=== PATIENT | male | born 1940 | race Caucasian/White ===

== ENCOUNTER → 2017-04-12 | Outpatient (CLI) | payer OTHER ==
[~2017-04-12] MED LIST: ALBU0.63 NEB; ALLO100T30 PO; ASPI-496 PO; BECL8.7A5 INH; CARB1TAB44 PO; CARV3.122 PO; CYCL5TAB PO; DOXY100C15 PO; ERGO2000 PO; FLUT1DIS3 INH; FURO80TA3 PO; GABA600T2 PO; IPRA0.2S35 INH; LISI5TAB7 PO; METF500T4 PO; MONT10TA9 PO; MULT-717 PO; POTA20TA6 PO; PRED10TA PO; PROP10DR4 EACHEYE; RANI150C PO; SIMV20TA3 PO; TAMS0.4C2 PO; WARF2.5T73 PO; [UNRECOGNIZED DRUG - OTHER] PO; calcium 600mg PO
== END | disposition home or self-care (01) ==
LOC: CVU 13:08
PROVIDERS: ATTEND Surgery Vascular Surgery
DX: I83.93 Asymptomatic varicose veins of bilateral lower extremities (principal)
CPT/HCPCS: 93970

== ENCOUNTER → 2017-12-28 | Outpatient (CLI) | payer OTHER ==
[~2017-12-28] MED LIST changes: -BECL8.7A5 INH; +BECL8.7A7 INH
== END | disposition home or self-care (01) ==
LOC: CFH 07:30
PROVIDERS: ATTEND Internal Medicine
DX: R91.8 Other nonspecific abnormal finding of lung field (principal); K76.89 Other specified diseases of liver; I70.0 Atherosclerosis of aorta
CPT/HCPCS: 71250

== ENCOUNTER 2018-04-12 10:12 | Day surgery (SDC) | payer OTHER ==
[~2018-04-12] VITALS: Ht 182.9 cm; Wt 126.8 kg
[~2018-04-12 10:12] MED LIST changes: -METF500T4 PO; +METF500T5 PO
[2018-04-12] MEDS ORDERED: SODIUM CHLORIDE 0.9% 1,000 ML IV ONE (10:48)
[2018-04-12 10:49] VITALS: BP 125/50
[2018-04-12] MEDS ORDERED: BUDE10.2 INH (11:10)
[2018-04-12] MEDS ORDERED: WARF7.5T46 PO ×2 (11:10)
[2018-04-12] MEDS ORDERED: CARV3.1212 PO (11:10)
[2018-04-12 11:30] LABS: BASOPHILS # (AUTO) 0.02 x10^3/uL (0-0.1); BASOPHILS % (AUTO) 0 % (0-1); EOSINOPHILS # (AUTO) 0.25 x10^3/uL (0-0.4); EOSINOPHILS % (AUTO) 4 % (1-7); LYMPHOCYTES # (AUTO) 1.15 x10^3/uL (1-3.4); LYMPHOCYTES % (AUTO) 17 % (22-44); MD NO; MEAN CORPUSCULAR HEMOGLOBIN 31.9 pg (27.5-34.5); MEAN CORPUSCULAR HGB CONC 33.5 g/dL (33.2-36.2); MEAN CORPUSCULAR VOLUME 95.2 fL (81-97); MEAN PLATELET VOLUME 6.9 fL (7.4-10.4); MONOCYTES % (AUTO) 11 % (2-9); NEUTROPHILS # (AUTO) 4.48 x10^3/uL (1.8-6.8); NEUTROPHILS % (AUTO) 68 % (42-75); PLATELET COUNT 166 x10^3/uL (130-400); RED BLOOD COUNT 4.26 x10^6/uL (4.38-5.82); RED CELL DISTRIBUTION WIDTH 16.1 % (9.4-14.8)
[2018-04-12 11:39] LABS: ANION GAP 5 mmol/L (5-15); CALCIUM 8.5 mg/dL (8.5-10.1); CHLORIDE 110 mmol/L (98-107); CREATININE 0.95 mg/dL (0.7-1.3)
[2018-04-12] MEDS ORDERED: MIDAZOLAM 1 MG/ML, 5ML ONE (11:52)
[2018-04-12] MEDS ORDERED: TICAGRELOR 90 MG TABLET ONE (11:52)
[2018-04-12] MEDS ORDERED: HEPARIN 1,000 UNITS/ML, 10ML ONE (11:52)
[2018-04-12] MEDS ORDERED: FENTANYL PF 100 MCG/2ML ONE (11:52)
[2018-04-12] MEDS ORDERED: BIVALIRUDIN 250 MG ONE (11:52)
[2018-04-12] MEDS ORDERED: VERAPAMIL 2.5 MG/ML, 2ML ONE (11:52)
[2018-04-12] MEDS ORDERED: LIDOCAINE-MPF 2% ,5ML ONE (11:53)
[2018-04-12] MEDS ORDERED: SODIUM CHLORIDE 0.9% 1,000 ML IV SCH (13:17)
== END 2018-04-12 15:59 | disposition home or self-care (01) ==
LOC: CACL 10:12
PROVIDERS: ATTEND Internal Medicine Cardiovascular Disease
DX: I25.10 Atherosclerotic heart disease of native coronary artery without angina pectoris (principal); F17.210 Nicotine dependence, cigarettes, uncomplicated; J44.9 Chronic obstructive pulmonary disease, unspecified; E11.9 Type 2 diabetes mellitus without complications; M10.9 Gout, unspecified; I25.2 Old myocardial infarction; K58.9 Irritable bowel syndrome, unspecified; E66.9 Obesity, unspecified; E78.2 Mixed hyperlipidemia; Z79.82 Long term (current) use of aspirin; Z86.718 Personal history of other venous thrombosis and embolism; Z79.899 Other long term (current) drug therapy
CPT/HCPCS: 36415; 80048; 85025; 93454; 93571; 99156; 99157; C1769; C1887; C1894; J1644; J2250; J3010; J3490; Q9967; J0583

== ENCOUNTER → 2018-04-26 | Outpatient (CLI) | payer OTHER ==
[~2018-04-26] MED LIST changes: +BUDE10.2 INH; +CARV3.1212 PO; +OMNIPAQUE 350 MG/ML, 150 ML BOTTLE ONE; +WARF7.5T46 PO
== END | disposition home or self-care (01) ==
LOC: CVU 08:05
PROVIDERS: ATTEND Internal Medicine Cardiovascular Disease
DX: J43.9 Emphysema, unspecified (principal); I25.10 Atherosclerotic heart disease of native coronary artery without angina pectoris; I51.7 Cardiomegaly; J98.4 Other disorders of lung; I65.23 Occlusion and stenosis of bilateral carotid arteries; I10 Essential (primary) hypertension; I35.0 Nonrheumatic aortic (valve) stenosis; E11.9 Type 2 diabetes mellitus without complications; Z87.891 Personal history of nicotine dependence; Z86.718 Personal history of other venous thrombosis and embolism
CPT/HCPCS: 71275; 74174; 93880; 94060; 94726; 94729; Q9967

== ENCOUNTER 2018-05-08 07:15 | Inpatient (IN) | payer OTHER ==
[~2018-05-08] VITALS: Ht 185.4 cm; Wt 131.7 kg
[~2018-05-08 07:15] MED LIST changes: -OMNIPAQUE 350 MG/ML, 150 ML BOTTLE ONE
[2018-05-08] MEDS ORDERED: SODIUM CHLORIDE 0.9% 1,000 ML IV ONE (07:34)
[2018-05-08 07:53] VITALS: BP 141/73
[2018-05-08] MEDS ORDERED: CHLORHEXIDINE 15 ML BOTTLE MM PRN (08:00)
[2018-05-08] MEDS ORDERED: PLEASE ENTER HEIGHT AND WEIGHT MC SCH (08:00)
[2018-05-08] MEDS ORDERED: ONDANSETRON 2MG/ML, 2ML IVPush PRN (08:00)
[2018-05-08 08:22] LABS: BASOPHILS # (AUTO) 0.06 x10^3/uL (0-0.1); BASOPHILS % (AUTO) 1 % (0-1); EOSINOPHILS # (AUTO) 0.32 x10^3/uL (0-0.4); EOSINOPHILS % (AUTO) 5 % (1-7); LYMPHOCYTES # (AUTO) 1.01 x10^3/uL (1-3.4); LYMPHOCYTES % (AUTO) 15 % (22-44); MD NO; MEAN CORPUSCULAR HEMOGLOBIN 32.3 pg (27.5-34.5); MEAN CORPUSCULAR HGB CONC 34.3 g/dL (33.2-36.2); MEAN CORPUSCULAR VOLUME 94.3 fL (81-97); MEAN PLATELET VOLUME 6.6 fL (7.4-10.4); MONOCYTES # (AUTO) 0.71 x10^3/uL (0.2-0.8); MONOCYTES % (AUTO) 11 % (2-9); NEUTROPHILS # (AUTO) 4.61 x10^3/uL (1.8-6.8); NEUTROPHILS % (AUTO) 69 % (42-75); PLATELET COUNT 139 x10^3/uL (130-400); RED BLOOD COUNT 4.18 x10^6/uL (4.38-5.82)
[2018-05-08 08:31] LABS: ALBUMIN 3.7 g/dL (3.4-5.0); ANION GAP 7 mmol/L (5-15); CALCIUM 8.7 mg/dL (8.5-10.1); CHLORIDE 107 mmol/L (98-107)
[2018-05-08 08:36] LABS: ALANINE AMINOTRANSFERASE 11 U/L (12-78); ALKALINE PHOSPHATASE 66 U/L (45-117); BILIRUBIN,TOTAL 1.1 mg/dL (0.2-1.0); CREATININE 1.01 mg/dL (0.7-1.3); TOTAL PROTEIN 7.4 g/dL (6.4-8.2)
[2018-05-08] MEDS ORDERED: PROTAMINE SULFATE 10 MG/ML, 5ML ONE (08:55)
[2018-05-08] MEDS ORDERED: HEPARIN 1,000 UNITS/ML, 10ML ONE (08:55)
[2018-05-08] MEDS ORDERED: FENTANYL PF 250 MCG/5ML ONE (09:03)
[2018-05-08] MEDS ORDERED: PROPOFOL 10 MG/ML, 20ML ONE (09:05)
[2018-05-08] MEDS ORDERED: ROCURONIUM 10MG/ML,5ML ONE (09:05)
[2018-05-08] MEDS ORDERED: ONDANSETRON 2MG/ML, 2ML ONE (09:08)
[2018-05-08] MEDS ORDERED: PHENYLEPHRINE 10 MG/ML ONE (09:08)
[2018-05-08] MEDS ORDERED: CEFAZOLIN 1,000 MG ONE (09:08)
[2018-05-08] MEDS ORDERED: SUCCINYLCHOLINE 20 MG/ML, 10ML ONE (09:08)
[2018-05-08] MEDS ORDERED: DEXAMETHASONE 4 MG/ML, 1ML ONE (09:08)
[2018-05-08] MEDS ORDERED: GLYCOPYRROLATE 0.2MG/1ML, 5ML ONE (09:08)
[2018-05-08 09:32] LABS: INTERNATIONAL NORMALIZED RATIO 1.36 (0.93-1.1); PROTHROMBIN TIME 14.1 Seconds (9.6-11.5)
[2018-05-08] MEDS: SODIUM CHLORIDE 0.9% 1,000 ML IV SCH ×2 (10:16→20:16)
[2018-05-08] MEDS ORDERED: ACETAMINOPHEN 325 MG TABLET PO PRN (10:30)
[2018-05-08] MEDS ORDERED: LABETALOL 5MG/ML, 20ML IVPush PRN (10:30)
[2018-05-08] MEDS ORDERED: hydrALAzine 20 MG/ML, 1ML IVPush PRN (10:30)
[2018-05-08] MEDS ORDERED: CARBIDOPA/LEVODOPA 25 MG/100 MG TABLET PO SCH ×2 (14:00→21:00)
[2018-05-08] MEDS ORDERED: ZOLPIDEM 10MG TABLET PO PRN (17:30)
[2018-05-08] MEDS ORDERED: WARFARIN 5 MG TABLET PO-COUM SCH (18:00)
[2018-05-08] MEDS: GABAPENTIN 300 MG CAPSULE PO SCH ×2 (18:05→22:30)
[2018-05-08] MEDS: POTASSIUM CHLORIDE 20 MEQ PACKET PO SCH (18:05)
[2018-05-08 18:44] VITALS: BP 122/50
[2018-05-08] MEDS: CARBIDOPA/LEVODOPA CR 50 MG/200 MG TABLET PO SCH ×2 (19:44→22:40)
[2018-05-08 20:44] VITALS: BP 127/69
[2018-05-08] MEDS: ALLOPURINOL 100 MG TABLET PO SCH (20:57)
[2018-05-08] MEDS: CYCLOBENZAPRINE 10 MG TABLET PO SCH (20:57)
[2018-05-08] MEDS ORDERED: CARBIDOPA/LEVODOPA CR 50 MG/200 MG TABLET PO SCH (21:00)
[2018-05-08] MEDS: INSULIN LISPRO 100 UNITS/ML, PEN SQ-INSULIN SCH (21:00)
[2018-05-08] MEDS ORDERED: POLYETHYLENE GLYCOL 17 GM PACKET ONE (22:39)
[2018-05-08] MEDS ORDERED: DOCUSATE 100 MG CAPSULE ONE (22:39)
[2018-05-08] MEDS: DOCUSATE 100 MG CAPSULE PO SCH (22:44)
[2018-05-08] MEDS ORDERED: POLYETHYLENE GLYCOL 17 GM PACKET PO PRN (23:00)
[2018-05-09 01:42] VITALS: BP 119/62
[2018-05-09 05:17] LABS: BASOPHILS # (AUTO) 0.02 x10^3/uL (0-0.1); BASOPHILS % (AUTO) 0 % (0-1); EOSINOPHILS # (AUTO) 0.01 x10^3/uL (0-0.4); EOSINOPHILS % (AUTO) 0 % (1-7); LYMPHOCYTES # (AUTO) 0.77 x10^3/uL (1-3.4); LYMPHOCYTES % (AUTO) 7 % (22-44); MD NO; MEAN CORPUSCULAR HEMOGLOBIN 32.6 pg (27.5-34.5); MEAN PLATELET VOLUME 7.2 fL (7.4-10.4); MONOCYTES # (AUTO) 0.64 x10^3/uL (0.2-0.8); MONOCYTES % (AUTO) 6 % (2-9); NEUTROPHILS # (AUTO) 10.04 x10^3/uL (1.8-6.8); NEUTROPHILS % (AUTO) 88 % (42-75); PLATELET COUNT 121 x10^3/uL (130-400); RED BLOOD COUNT 3.77 x10^6/uL (4.38-5.82); RED CELL DISTRIBUTION WIDTH 16.4 % (9.4-14.8)
[2018-05-09 05:35] LABS: ALBUMIN 3.3 g/dL (3.4-5.0); ANION GAP 8 mmol/L (5-15); CALCIUM 8.5 mg/dL (8.5-10.1); CHLORIDE 108 mmol/L (98-107); CREATININE 0.88 mg/dL (0.7-1.3)
[2018-05-09] MEDS ORDERED: ASPIRIN 81 MG TABLET EC PO SCH ×2 (06:00→09:00)
[2018-05-09] MEDS ORDERED: CARVEDILOL 3.125 MG TABLET PO SCH (06:00)
[2018-05-09] MEDS: SODIUM CHLORIDE 0.9% 1,000 ML IV SCH (06:16)
[2018-05-09 06:44] VITALS: BP 114/54
[2018-05-09] MEDS: CARBIDOPA/LEVODOPA CR 50 MG/200 MG TABLET PO SCH ×2 (06:46→11:32)
[2018-05-09] MEDS: INSULIN LISPRO 100 UNITS/ML, PEN SQ-INSULIN SCH ×2 (07:00→11:00)
[2018-05-09 07:46] VITALS: BP 109/56
[2018-05-09] MEDS ORDERED: LISINOPRIL 5 MG TABLET PO SCH (09:00)
[2018-05-09] MEDS: ALLOPURINOL 100 MG TABLET PO SCH (09:23)
[2018-05-09] MEDS: CYCLOBENZAPRINE 10 MG TABLET PO SCH (09:23)
[2018-05-09] MEDS: GABAPENTIN 300 MG CAPSULE PO SCH (09:23)
[2018-05-09] MEDS: DOCUSATE 100 MG CAPSULE PO SCH (09:23)
[2018-05-09] MEDS: POTASSIUM CHLORIDE 20 MEQ PACKET PO SCH (09:24)
[2018-05-09 13:10] VITALS: BP 107/67
[2018-05-09] MEDS ORDERED: ACET325T14 PO (13:45)
[2018-05-09] MEDS ORDERED: MAGNESIUM HYDROXIDE 8%, 30ML UDC PO PRN (14:00)
[2018-05-09] MEDS ORDERED: CARV3.1212 PO (15:00)
== END 2018-05-09 17:12 | disposition home or self-care (01) | DRG 266 ==
LOC: ORIP 07:15 → CCU 08:42 → 5SO 18:50
PROVIDERS: ADMIT Internal Medicine Cardiovascular Disease; ATTEND Internal Medicine Cardiovascular Disease
PROC: B24BZZ4 Ultrasonography of Heart with Aorta, Transesophageal (ICD-10-PCS; 2018-05-08)
PROC: 5A1223Z Performance of Cardiac Pacing, Continuous (ICD-10-PCS; 2018-05-08)
PROC: 02RF38Z Replacement of Aortic Valve with Zooplastic Tissue, Percutaneous Approach (ICD-10-PCS; principal; 2018-05-08 09:30)
DX: I35.0 Nonrheumatic aortic (valve) stenosis (principal); Z00.6 Encounter for examination for normal comparison and control in clinical research program; I82.502 Chronic embolism and thrombosis of unspecified deep veins of left lower extremity; I50.33 Acute on chronic diastolic (congestive) heart failure; D68.69 Other thrombophilia; I13.0 Hypertensive heart and chronic kidney disease with heart failure and stage 1 through stage 4 chronic kidney disease, or unspecified chronic kidney disease; E11.22 Type 2 diabetes mellitus with diabetic chronic kidney disease; E78.5 Hyperlipidemia, unspecified; I45.10 Unspecified right bundle-branch block; I48.2 Chronic atrial fibrillation; N18.2 Chronic kidney disease, stage 2 (mild); Z79.4 Long term (current) use of insulin; Z86.711 Personal history of pulmonary embolism
CPT/HCPCS: 33361; 36415; 80048; 80053; 82040; 82962; 83880; 85025; 85347; 85610; 86850; 86870; 86900; 86902; 87081; 93005; 93306; 93312; 93321; 93325; 93355; C1760; C1769; C1894; J0690; J1100; J1644; J2405; J2704; J2720; J3010; J3490; J0330; J2370; J7030; Q9967

== ENCOUNTER → 2018-06-05 | Outpatient (CLI) | payer OTHER ==
[~2018-06-05] MED LIST changes: +ACET325T14 PO
== END | disposition home or self-care (01) ==
LOC: CVU 09:33
PROVIDERS: ATTEND Internal Medicine Cardiovascular Disease
DX: I08.1 Rheumatic disorders of both mitral and tricuspid valves (principal)
CPT/HCPCS: 93306

== ENCOUNTER → 2018-12-07 | Outpatient (CLI) | payer MEDICARE ==
[~2018-12-07] MED LIST changes: -GABA600T2 PO; +GABA600T7 PO; +METF500T17 PO; -METF500T5 PO; +WARF2.5T32 PO; -WARF2.5T73 PO
== END | disposition home or self-care (01) ==
LOC: RAD 08:21
PROVIDERS: ATTEND Internal Medicine Nephrology
DX: E11.22 Type 2 diabetes mellitus with diabetic chronic kidney disease (principal); I13.0 Hypertensive heart and chronic kidney disease with heart failure and stage 1 through stage 4 chronic kidney disease, or unspecified chronic kidney disease; I50.33 Acute on chronic diastolic (congestive) heart failure; N18.2 Chronic kidney disease, stage 2 (mild)
CPT/HCPCS: 76770

== ENCOUNTER → 2019-04-12 | Outpatient (CLI) | payer MEDICARE | END | disposition home or self-care (01) | LOC: CVU 08:18 | PROVIDERS: ATTEND Internal Medicine Cardiovascular Disease | DX: I08.8 Other rheumatic multiple valve diseases (principal); J44.9 Chronic obstructive pulmonary disease, unspecified; I25.2 Old myocardial infarction; Z86.73 Personal history of transient ischemic attack (TIA), and cerebral infarction without residual deficits | CPT/HCPCS: 93306 ==

== ENCOUNTER 2019-10-12 20:27 | Inpatient (IN) | payer MEDICARE ==
[~2019-10-12] VITALS: Ht 182.9 cm; Wt 112.0 kg
[2019-10-12] MEDS ORDERED: SODIUM CHLORIDE FLUSH 10ML SYR IVF ONE (20:30)
--- NOTE | 2019-10-12 20:35 | NUR ---
BIB [facility] FOR MULTIPLE SYNCOPAL EPISODES WHILE SITTING IN HIS CHAIR, WITNESSED BY FAMILY. PT STATES DIZZY PRIOR TO EACH EPISODE. PT STATES HE KNEW HE WAS HAVING A SYNCOPAL EPISODE. PT CONNECTED TO MONITORING. CALL LIGHT IN [facility]. SPOUSE AT BEDSIDE.
[2019-10-12 20:44] LABS: BASOPHILS # (AUTO) 0.03 x10^3/uL (0-0.1); BASOPHILS % (AUTO) 0 % (0-1); EOSINOPHILS # (AUTO) 0.32 x10^3/uL (0-0.4); EOSINOPHILS % (AUTO) 4 % (1-7); LYMPHOCYTES # (AUTO) 1.37 x10^3/uL (1-3.4); LYMPHOCYTES % (AUTO) 19 % (22-44); MD NO; MEAN CORPUSCULAR HEMOGLOBIN 33.7 pg (27.5-34.5); MEAN CORPUSCULAR HGB CONC 33.4 g/dL (33.2-36.2); MEAN CORPUSCULAR VOLUME 100.9 fL (81-97); MEAN PLATELET VOLUME 6.8 fL (7.4-10.4); MONOCYTES # (AUTO) 0.76 x10^3/uL (0.2-0.8); MONOCYTES % (AUTO) 10 % (2-9); NEUTROPHILS # (AUTO) 4.93 x10^3/uL (1.8-6.8); NEUTROPHILS % (AUTO) 67 % (42-75); PLATELET COUNT 157 x10^3/uL (130-400); RED BLOOD COUNT 4.02 x10^6/uL (4.38-5.82); RED CELL DISTRIBUTION WIDTH 15.4 % (9.4-14.8)
[2019-10-12 20:54] LABS: INTERNATIONAL NORMALIZED RATIO 1.79 (0.93-1.1); PROTHROMBIN TIME 18.4 Seconds (9.6-11.5)
[2019-10-12 20:56] LABS: ALANINE AMINOTRANSFERASE 14 U/L (12-78); ALBUMIN 3.9 g/dL (3.4-5.0); ANION GAP 6 mmol/L (5-15); CALCIUM 9.3 mg/dL (8.5-10.1); CHLORIDE 104 mmol/L (98-107); CREATININE 1.44 mg/dL (0.7-1.3)
[2019-10-12] MEDS ORDERED: PLEASE ENTER HEIGHT AND WEIGHT MC SCH (21:00)
[2019-10-12 21:01] LABS: ALKALINE PHOSPHATASE 66 U/L (45-117); BILIRUBIN,TOTAL 0.6 mg/dL (0.2-1.0); TOTAL PROTEIN 7.8 g/dL (6.4-8.2); TROPONIN I < 0.015 ng/mL (0.000-0.045)
[2019-10-12] MEDS ORDERED: SPIRONOLACTONE (21:07)
[2019-10-12] MEDS ORDERED: ZOLP10TA PO (21:07)
--- NOTE | 2019-10-12 22:16 | NUR ---
REPORT GIVEN TO JIMENEZ CARLOS
--- NOTE | 2019-10-12 22:27 | NUR ---
HOSPITALIST AT BEDSIDE.
[2019-10-12] MEDS ORDERED: POLYETHYLENE GLYCOL 17 GM PACKET PO PRN (23:00)
[2019-10-12] MEDS ORDERED: ONDANSETRON 2MG/ML, 2ML IVPush PRN (23:00)
[2019-10-12] MEDS ORDERED: hydrALAzine 20 MG/ML, 1ML IVPush PRN (23:00)
[2019-10-12] MEDS ORDERED: BISACODYL 10 MG SUPP PR PRN (23:00)
[2019-10-12 23:23] VITALS: BP 127/70
[2019-10-13] MEDS ORDERED: ALBUTEROL SULFATE 2.5 MG/3 ML NPPB SCH
[2019-10-13] MEDS ORDERED: ALBUTEROL/IPRATROPIUM 2.5MG/0.5MG, 3 ML NPPB PRN
[2019-10-13 01:00] VITALS: BP 106/65
[2019-10-13] MEDS: ACETAMINOPHEN 325 MG TABLET PO PRN (02:22)
[2019-10-13] MEDS: CARBIDOPA/LEVODOPA CR 50 MG/200 MG TABLET PO SCH ×5 (02:43→20:43)
[2019-10-13] MEDS: GABAPENTIN 300 MG CAPSULE PO SCH ×4 (05:41→20:43)
[2019-10-13 06:27] LABS: BASOPHILS # (AUTO) 0.02 x10^3/uL (0-0.1); BASOPHILS % (AUTO) 0 % (0-1); EOSINOPHILS # (AUTO) 0.27 x10^3/uL (0-0.4); EOSINOPHILS % (AUTO) 5 % (1-7); LYMPHOCYTES # (AUTO) 0.96 x10^3/uL (1-3.4); LYMPHOCYTES % (AUTO) 16 % (22-44); MD NO; MEAN CORPUSCULAR HEMOGLOBIN 33.2 pg (27.5-34.5); MEAN CORPUSCULAR VOLUME 100.5 fL (81-97); MEAN PLATELET VOLUME 7.2 fL (7.4-10.4); MONOCYTES # (AUTO) 0.66 x10^3/uL (0.2-0.8); MONOCYTES % (AUTO) 11 % (2-9); NEUTROPHILS % (AUTO) 68 % (42-75); PLATELET COUNT 129 x10^3/uL (130-400); RED BLOOD COUNT 4.08 x10^6/uL (4.38-5.82); RED CELL DISTRIBUTION WIDTH 15.6 % (9.4-14.8)
[2019-10-13 06:36] LABS: INTERNATIONAL NORMALIZED RATIO 1.77 (0.93-1.1); PROTHROMBIN TIME 18.2 Seconds (9.6-11.5)
[2019-10-13 06:38] LABS: ANION GAP 5 mmol/L (5-15); CHLORIDE 107 mmol/L (98-107); CHOLESTEROL, TOTAL 162 mg/dL (140-239); TRIGLYCERIDES 61 mg/dL (50-200); VLDL CHOLESTEROL 12 mg/dL (0-25)
[2019-10-13 06:40] LABS: CHOL/HDL RATIO 1.7; HDL CHOL % 58 % (26-37); HDL CHOLESTEROL (DIRECT) 94 mg/dL (40-60); LDL CHOLESTEROL,CALCULATED 56 mg/dL (54-169); LDL/HDL RATIO 0.6 (0.5-3.0)
[2019-10-13] MEDS: INSULIN LISPRO 100 UNITS/ML, PEN SQ-INSULIN SCH ×4 (07:30→20:11)
[2019-10-13] MEDS ORDERED: ASPIRIN 81 MG TABLET CHEW PO/NG SCH (09:00)
[2019-10-13] MEDS: MONTELUKAST 10 MG TABLET PO SCH (09:14)
[2019-10-13] MEDS: SENNA/DOCUSATE TABLET PO SCH (09:15)
[2019-10-13] MEDS: TAMSULOSIN 0.4 MG CAP.ER.24H PO SCH (09:15)
[2019-10-13] MEDS: FUROSEMIDE 80 MG TABLET PO SCH ×3 (09:15→20:48)
[2019-10-13] MEDS: SPIRONOLACTONE 25 MG TABLET PO SCH (09:15)
[2019-10-13] MEDS: LISINOPRIL 5 MG TABLET PO SCH (09:16)
[2019-10-13] MEDS: ALBUTEROL SULFATE 2.5 MG/3 ML NPPB SCH ×3 (09:55→20:55)
[2019-10-13] MEDS: BUDESONIDE 0.5 MG/2 ML INHA NPPB SCH ×2 (09:55→20:55)
[2019-10-13] MEDS ORDERED: CARB1TAB22 PO (09:56)
[2019-10-13 09:59] VITALS: BP 127/61
[2019-10-13] MEDS ORDERED: CEFAZOLIN PMX 1GM/50ML 50 ML IVPB ONE (10:00)
[2019-10-13] MEDS: CARBIDOPA/LEVODOPA 25 MG/100 MG TABLET PO PRN (10:29)
[2019-10-13] MEDS: POTASSIUM CHLORIDE 20 MEQ TAB.ER.PRT PO SCH ×2 (10:29→16:28)
[2019-10-13] MEDS ORDERED: GADOTERATE 10 MMOL/20 ML SYR ONE (13:44)
[2019-10-13 15:19] VITALS: BP 107/51
[2019-10-13] MEDS ORDERED: WARFARIN 7.5 MG TABLET PO-COUM ONE (18:00)
[2019-10-13 19:20] VITALS: BP 121/63
[2019-10-13] MEDS: ZOLPIDEM 10MG TABLET PO PRN (21:31)
[2019-10-14 01:46] VITALS: BP 107/46
[2019-10-14] MEDS: ALBUTEROL SULFATE 2.5 MG/3 ML NPPB SCH ×4 (03:00→21:00)
[2019-10-14] MEDS: GABAPENTIN 300 MG CAPSULE PO SCH ×5 (05:12→21:08)
[2019-10-14] MEDS: CARBIDOPA/LEVODOPA CR 50 MG/200 MG TABLET PO SCH ×5 (05:12→21:08)
[2019-10-14 06:12] LABS: INTERNATIONAL NORMALIZED RATIO 1.7 (0.93-1.1); PROTHROMBIN TIME 17.5 Seconds (9.6-11.5)
[2019-10-14] MEDS: INSULIN LISPRO 100 UNITS/ML, PEN SQ-INSULIN SCH ×4 (07:00→21:00)
[2019-10-14] MEDS ORDERED: CEFAZOLIN PMX 1GM/50ML 50 ML IV ONE (07:00)
[2019-10-14] MEDS: SODIUM CHLORIDE 0.9% 1,000 ML IV SCH ×2 (07:55→19:46)
[2019-10-14] MEDS: SPIRONOLACTONE 25 MG TABLET PO SCH (07:56)
[2019-10-14] MEDS: FUROSEMIDE 80 MG TABLET PO SCH ×3 (07:56→21:08)
[2019-10-14] MEDS: MONTELUKAST 10 MG TABLET PO SCH (07:56)
[2019-10-14] MEDS: LISINOPRIL 5 MG TABLET PO SCH (07:56)
[2019-10-14] MEDS: TAMSULOSIN 0.4 MG CAP.ER.24H PO SCH (07:56)
[2019-10-14] MEDS: SENNA/DOCUSATE TABLET PO SCH (07:56)
[2019-10-14] MEDS: POTASSIUM CHLORIDE 20 MEQ TAB.ER.PRT PO SCH ×2 (07:56→15:53)
[2019-10-14] MEDS: ASPIRIN 81 MG TABLET CHEW PO/NG SCH (08:01)
[2019-10-14] MEDS: BUDESONIDE 0.5 MG/2 ML INHA NPPB SCH ×2 (08:10→21:00)
[2019-10-14 08:27] VITALS: BP 111/53
[2019-10-14 12:05] VITALS: BP 114/74
[2019-10-14] MEDS ORDERED: MIDAZOLAM 1 MG/ML, 5ML ONE (13:04)
[2019-10-14] MEDS ORDERED: LIDOCAINE 1%, 20ML ONE (13:04)
[2019-10-14] MEDS ORDERED: FENTANYL PF 100 MCG/2ML ONE (13:04)
[2019-10-14] MEDS ORDERED: CEFAZOLIN 1,000 MG ONE (13:04)
[2019-10-14] MEDS ORDERED: CEFAZOLIN PMX 1GM/50ML 50 ML ONE (13:04)
[2019-10-14 13:05] VITALS: BP 110/51
[2019-10-14] MEDS ORDERED: HYDROcodone/APAP 5/325 TABLET PO PRN (14:30)
[2019-10-14] MEDS ORDERED: HOLD MEDICATION MC PRN (14:30)
[2019-10-14] MEDS: CARBIDOPA/LEVODOPA 25 MG/100 MG TABLET PO PRN (15:54)
[2019-10-14] MEDS: ACETAMINOPHEN 325 MG TABLET PO PRN (15:54)
[2019-10-14] MEDS ORDERED: WARFARIN 7.5 MG TABLET PO-COUM ONE (18:00)
[2019-10-14 20:05] VITALS: BP 108/59
[2019-10-14] MEDS: ZOLPIDEM 10MG TABLET PO PRN (21:08)
[2019-10-14] MEDS: SODIUM CHLORIDE FLUSH 10ML SYR IVF SCH (21:09)
[2019-10-14] MEDS: CEFAZOLIN PMX 1GM/50ML 50 ML IVPB SCH (22:00)
[2019-10-15 01:49] VITALS: BP 121/60
[2019-10-15] MEDS: ALBUTEROL SULFATE 2.5 MG/3 ML NPPB SCH ×2 (03:00→07:30)
[2019-10-15 06:16] LABS: ALBUMIN 3.8 g/dL (3.4-5.0); ANION GAP 3 mmol/L (5-15); CALCIUM 8.8 mg/dL (8.5-10.1); CHLORIDE 106 mmol/L (98-107); CREATININE 1.03 mg/dL (0.7-1.3)
[2019-10-15 06:17] LABS: BASOPHILS # (AUTO) 0.02 x10^3/uL (0-0.1); BASOPHILS % (AUTO) 0 % (0-1); EOSINOPHILS # (AUTO) 0.34 x10^3/uL (0-0.4); EOSINOPHILS % (AUTO) 5 % (1-7); LYMPHOCYTES # (AUTO) 0.92 x10^3/uL (1-3.4); LYMPHOCYTES % (AUTO) 14 % (22-44); MD NO; MEAN CORPUSCULAR HEMOGLOBIN 33.6 pg (27.5-34.5); MEAN CORPUSCULAR HGB CONC 33.2 g/dL (33.2-36.2); MEAN CORPUSCULAR VOLUME 101.2 fL (81-97); MEAN PLATELET VOLUME 6.9 fL (7.4-10.4); MONOCYTES # (AUTO) 0.74 x10^3/uL (0.2-0.8); MONOCYTES % (AUTO) 11 % (2-9); NEUTROPHILS # (AUTO) 4.61 x10^3/uL (1.8-6.8); NEUTROPHILS % (AUTO) 70 % (42-75); PLATELET COUNT 148 x10^3/uL (130-400); RED BLOOD COUNT 4.29 x10^6/uL (4.38-5.82); RED CELL DISTRIBUTION WIDTH 15.4 % (9.4-14.8)
[2019-10-15 06:23] LABS: ALANINE AMINOTRANSFERASE 13 U/L (12-78); ALKALINE PHOSPHATASE 66 U/L (45-117); BILIRUBIN,TOTAL 1.1 mg/dL (0.2-1.0)
[2019-10-15] MEDS: GABAPENTIN 300 MG CAPSULE PO SCH ×2 (06:26→11:00)
[2019-10-15] MEDS: CARBIDOPA/LEVODOPA CR 50 MG/200 MG TABLET PO SCH ×2 (06:26→11:00)
[2019-10-15] MEDS: CEFAZOLIN PMX 1GM/50ML 50 ML IVPB SCH (06:26)
[2019-10-15 06:42] LABS: INTERNATIONAL NORMALIZED RATIO 1.54 (0.93-1.1); PROTHROMBIN TIME 15.9 Seconds (9.6-11.5)
[2019-10-15] MEDS: INSULIN LISPRO 100 UNITS/ML, PEN SQ-INSULIN SCH ×2 (07:00→11:00)
[2019-10-15 07:25] VITALS: BP 131/70
[2019-10-15] MEDS: BUDESONIDE 0.5 MG/2 ML INHA NPPB SCH (07:30)
[2019-10-15] MEDS: MONTELUKAST 10 MG TABLET PO SCH (08:50)
[2019-10-15] MEDS: SPIRONOLACTONE 25 MG TABLET PO SCH (08:51)
[2019-10-15] MEDS: FUROSEMIDE 80 MG TABLET PO SCH (08:51)
[2019-10-15] MEDS: TAMSULOSIN 0.4 MG CAP.ER.24H PO SCH ×2 (08:51→08:54)
[2019-10-15] MEDS: LISINOPRIL 5 MG TABLET PO SCH (08:52)
[2019-10-15] MEDS: POTASSIUM CHLORIDE 20 MEQ TAB.ER.PRT PO SCH (08:52)
[2019-10-15] MEDS: ASPIRIN 81 MG TABLET CHEW PO/NG SCH (08:53)
[2019-10-15] MEDS: SENNA/DOCUSATE TABLET PO SCH (08:53)
[2019-10-15] MEDS: SODIUM CHLORIDE FLUSH 10ML SYR IVF SCH (08:53)
[2019-10-15] MEDS: SODIUM CHLORIDE 0.9% 1,000 ML IV SCH (08:56)
[2019-10-15] MEDS ORDERED: WARFARIN 2.5 MG TABLET PO-COUM ONE (09:30)
== END 2019-10-15 13:00 | disposition home or self-care (01) | DRG 242 ==
LOC: ED 21:14 → EDIP 21:49 → 4WST 22:57 → 5SO 10-14 15:10 → DCLOUNGE 10-15 12:45
PROVIDERS: ADMIT Family Medicine; ATTEND Internal Medicine
PROC: 0JH604Z Insertion of Pacemaker, Single Chamber into Chest Subcutaneous Tissue and Fascia, Open Approach (ICD-10-PCS; principal; 2019-10-14)
PROC: 02HK3JZ Insertion of Pacemaker Lead into Right Ventricle, Percutaneous Approach (ICD-10-PCS; 2019-10-14)
DX: I49.5 Sick sinus syndrome (principal); I50.33 Acute on chronic diastolic (congestive) heart failure; I13.0 Hypertensive heart and chronic kidney disease with heart failure and stage 1 through stage 4 chronic kidney disease, or unspecified chronic kidney disease; D68.69 Other thrombophilia; E87.1 Hypo-osmolality and hyponatremia; I82.502 Chronic embolism and thrombosis of unspecified deep veins of left lower extremity; I48.20 Chronic atrial fibrillation, unspecified; J44.9 Chronic obstructive pulmonary disease, unspecified; K59.09 Other constipation; E11.22 Type 2 diabetes mellitus with diabetic chronic kidney disease; I25.2 Old myocardial infarction; E11.40 Type 2 diabetes mellitus with diabetic neuropathy, unspecified; E78.5 Hyperlipidemia, unspecified; F51.04 Psychophysiologic insomnia; G20 Parkinson's disease; I27.20 Pulmonary hypertension, unspecified; I65.23 Occlusion and stenosis of bilateral carotid arteries; M10.9 Gout, unspecified; N18.3 Chronic kidney disease, stage 3 (moderate); Z79.01 Long term (current) use of anticoagulants; Z79.4 Long term (current) use of insulin; Z82.49 Family history of ischemic heart disease and other diseases of the circulatory system; Z86.711 Personal history of pulmonary embolism; Z87.891 Personal history of nicotine dependence; Z95.3 Presence of xenogenic heart valve
CPT/HCPCS: 33207; 36415; 70450; 70553; 71045; 80048; 80053; 80061; 82607; 82962; 83036; 83735; 83880; 84100; 84439; 84443; 84484; 85025; 85610; 93005; 93306; 93880; 94640; 99156; 99285; C1779; C1786; C1892; G0378; J0690; J2250; J3010; J7613; J7626; A9575; J7030

== ENCOUNTER → 2020-06-10 | Outpatient (CLI) | payer MEDICARE ==
[~2020-06-10] MED LIST changes: +CARB1TAB22 PO; +MONT10TA11 PO; -MONT10TA9 PO; +SIMV20TA19 PO; -SIMV20TA3 PO; +SPIRONOLACTONE; +ZOLP10TA PO
== END | disposition home or self-care (01) ==
LOC: CFH 10:14
PROVIDERS: ATTEND Nurse Practitioner
DX: R31.0 Gross hematuria (principal); R10.9 Unspecified abdominal pain; R80.9 Proteinuria, unspecified; N18.2 Chronic kidney disease, stage 2 (mild)
CPT/HCPCS: 76770

== ENCOUNTER → 2021-02-05 | Outpatient (CLI) | payer MEDICARE ==
[~2021-02-05] MED LIST changes: -MONT10TA11 PO; +MONT10TA17 PO
== END | disposition home or self-care (01) ==
LOC: CVU 07:55
PROVIDERS: ATTEND Family Medicine
DX: I08.8 Other rheumatic multiple valve diseases (principal); I11.0 Hypertensive heart disease with heart failure; I50.9 Heart failure, unspecified
CPT/HCPCS: 93306